=== PATIENT | male | born 1970 | race American Indian/Alaskan Native ===

== ENCOUNTER 2018-03-17 10:17 | Emergency (ER) | payer OTHER ==
[2018-03-17 10:52] VITALS: BP 166/92
--- NOTE | 2018-03-17 12:14 | Emergency Department Report ---
ED Eye Problem HPI - General Chief complaint: Eye Problems Stated complaint: VISION BLURRED Time Seen by Provider: 03/17/18 12:00 Source: patient Mode of arrival: Ambulatory Limitations: No Limitations - History of Present Illness Initial comments: Mr. Hernandez is a very pleasant healthy 48-year-old male presents with left eye blurry vision since this morning. He explained that he underwent a routine eye exam 2 months ago at [facility] and was told that he needed to see a corneal specialist due to abnormality of the left eye. he has not arranged follow up He noticed that his vision has been off for the past 2 months. Today vision is worse. He denies pain. Denies numbness. Denies scotoma. Denies headache MD chief complaint: vision change -: Gradual, days(s) (1) Onset Description: gradual Location: left eye If Injury: none Eye Symptoms: blurry vision Severity: moderate - Related Data Allergies Allergy/AdvReac Type Severity Reaction Status Date / Time No Known Allergies Allergy Unverified 03/17/18 10:51 ED Review of Systems ROS: Stated complaint: VISION BLURRED Other details as noted in HPI Comment: All other systems reviewed and negative Constitutional: denies: fever, malaise Respiratory: denies: cough Cardiovascular: denies: chest pain ED Past Medical Hx - Past Medical History Previous Medical History?: No Hx Hypertension: Yes - Surgical History Past Surgical History?: No - Social History Smoking Status: Never Smoker Substance Use Type: None ED Physical Exam - General Limitations: No Limitations General appearance: alert, in no apparent distress - Head Head exam: Present: atraumatic, normocephalic - Eye Eye exam: Present: normal appearance, PERRL, EOMI. Absent: scleral icterus, conjunctival injection, nystagmus, periorbital swelling, periorbital tenderness - Expanded Eye Exam Expanded Eyelids: Normal Inspection: Right Pupils: Regular, Round: Bilateral, Reactive: Bilateral Sclera/Conjunctival: Normal Inspection: Bilateral Anterior chamber: Normal Inspection: Bilateral Posterior chamber: Normal Inspection: Bilateral Visual acuity (R) = 20/: 25 Visual acuity (L) = 20/: 100 - ENT ENT exam: Present: mucous membranes moist - Neck Neck exam: Present: normal inspection - Respiratory Respiratory exam: Present: normal lung sounds bilaterally. Absent: respiratory distress - Cardiovascular Cardiovascular Exam: Present: regular rate, normal rhythm, normal heart sounds. Absent: systolic murmur, diastolic murmur, rubs, gallop - GI/Abdominal GI/Abdominal exam: Present: soft, normal bowel sounds. Absent: distended, tenderness, guarding, rebound - Rectal Rectal exam: Present: deferred - Extremities Exam Extremities exam: Present: normal inspection - Back Exam Back exam: Present: normal inspection - Neurological Exam Neurological exam: Present: alert, oriented X3 - Psychiatric Psychiatric exam: Present: normal affect, normal mood - Skin Skin exam: Present: warm, dry, intact, normal color. Absent: rash ED Course Vital Signs 03/17/18 10:48 Temperature 98.5 F Pulse Rate 72 Respiratory 16 Rate Blood Pressure 166/92 O2 Sat by Pulse 98 Oximetry ED Medical Decision Making - Medical Decision Making Mr. Hernandez presents with left eye blurry vision. Do not suspect retinal detachment vitreous hemorrhage or acute vascular event such central retinal artery conclusion. No pain to indicate acute angle closure glaucoma. I do not suspect CVA. I strongly suggested evaluation by materials planning manager today or tomorrow. DDX: glaucoma, cataract, early macular degeneration Critical care attestation.: If time is entered above; I have spent that time in minutes in the direct care of this critically ill patient, excluding procedure time. ED Disposition Clinical Impression: Blurry vision, left eye Disposition: DC-01 TO HOME OR SELFCARE Is pt being admited?: No Does the pt Need Aspirin: No Condition: Stable Instructions: Blurred Vision (ED) Referrals: TONI PHAM MD [Staff Physician] - SARAH APOLINAR LIRA MD [Staff Physician] - [facility] Time of Disposition: 12:15
== END 2018-03-17 12:29 | disposition home or self-care (01) ==
LOC: ED 10:17
DX: H53.8 Other visual disturbances (principal); I10 Essential (primary) hypertension
CPT/HCPCS: 82962; 99283